=== PATIENT | male | born 2005 | race Caucasian/White ===

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

== ENCOUNTER 2024-02-27 23:28 | Emergency (ER) | payer BC ==
[~2024-02-27] VITALS: Wt 86.2 kg
== END 2024-02-27 23:55 | disposition left against medical advice (07) ==
LOC: ED 23:28
DX: J45.909 Unspecified asthma, uncomplicated (principal); Z53.21 Procedure and treatment not carried out due to patient leaving prior to being seen by health care provider

== ENCOUNTER 2024-03-20 10:47 | Emergency (ER) | payer BC ==
[~2024-03-20] VITALS: Wt 86.2 kg
[2024-03-20] MEDS ORDERED: methylPREDNISolone sod succ 125 MG VIAL IM ONE (11:25)
[2024-03-20] MEDS ORDERED: PREDNISONE20 M1 PO (11:31)
== END 2024-03-20 11:43 | disposition home or self-care (01) ==
LOC: ED 10:47
DX: L25.9 Unspecified contact dermatitis, unspecified cause (principal); Z88.8 Allergy status to other drugs, medicaments and biological substances; Z79.899 Other long term (current) drug therapy